=== PATIENT | female | born 1950 | race Caucasian/White ===

== ENCOUNTER 2025-03-09 13:44 | Emergency (ER) | payer OTHER, MEDICARE, SELFPAY ==
[2025-03-09] VITALS (8 sets, daily range): BP systolic 128–159; BP diastolic 59–87; PULSE 60–76; RESP 14–20; TEMP 36.4–36.7; O2SAT 97–100; BMI 31.5
--- NOTE | 2025-03-09 14:05 | RAD_ITS ---
PROCEDURE: WRIST MIN 3 VIEWS 03/09/2025 REASON FOR EXAM: FALL TECHNIQUE: Three-view right wrist. COMPARISON: None RAD/Wrist min 3 Views IMPRESSION: A comminuted impacted intra-articular fracture of the distal right radius is se en, with secondary marked positive ulnar variance. A displaced ulnar styloid fracture is also noted. Generalized osteopenia is present. Mild degenerative changes are seen throughout the fingers, moderate at the 1st interphalangeal joint. Mild degenerative changes are seen of the 1st metacarpophalangeal joint and the scaphoid trapezial trapezoid joint Reading Location: [id number]
[2025-03-09] MEDS: oxyCODONE 5 MG Tablet PO (15:05)
--- NOTE | 2025-03-09 15:24 | EX.ED.UPPERE ---
HPI History of Present Illness Chief Complaint: Upper Extremity Injury Informant: patient and family Narrative Narrative: [id number] female presents for fall while at work. Stumbled falling outstretched hand. Pain to right wrist and forearm. No head injuries. No anticoagulants. No history of fractures. Denies any allergies. Does not follow with an orthopedist. Prior similar symptoms: No PFSH PFSH Medical History Hypothyroid Hypercholesteremia Hypertension Home Medications ?Medication ?Instructions ?Recorded ?Last Taken ?Type atorvastatin 20 mg tablet 20 mg PO DAILY 03/09/25 Unknown History chlorthalidone 25 mg tablet 25 mg PO DAILY 03/09/25 Unknown History clonidine HCl 0.2 mg tablet 0.2 mg PO BID 03/09/25 Unknown History docusate sodium 100 mg capsule 100 mg PO BID #60 caps 03/09/25 Unknown Rx (Colace) gabapentin 100 mg capsule 100 mg PO TID 03/09/25 Unknown History levothyroxine 75 mcg tablet 75 mcg PO DAILY disorder of 03/09/25 Unknown History thyroid gland lisinopril 40 mg tablet 20 mg PO BID 03/09/25 Unknown History meloxicam 15 mg tablet 15 mg PO DAILY 03/09/25 Unknown History ondansetron 4 mg disintegrating 4 mg PO Q8H PRN PRN Nausea #10 tabs 03/09/25 Unknown Rx tablet oxycodone-acetaminophen 5 mg-325 1 tab PO Q6H PRN PRN Pain 3 days 03/09/25 Unknown Rx mg tablet #12 TABLETS Allergy/AdvReac Type Severity Reaction Status Date / Time No Known Allergies Allergy Verified 03/09/25 13:44 Surgical History No pertinent past surgical history Social History (Updated 03/09/25 @ 19:[address] Alexander Heaton MD) Smoking Status: Never smoker alcohol intake: never ROS ROS ED Constitutional Constitutional ED: Denies fever(s) Cardiovascular Cardiovascular: Denies chest pain Respiratory/Chest Respiratory/Chest: Denies cough Gastrointestinal Gastrointestinal: Denies diarrhea or vomiting Musculoskeletal Musculoskeletal: Reports other Details: Right wrist and forearm pain. Integumentary Denies rash or wounds Neurologic Neurologic: Denies weakness EXAM Physical Exam Const Vital Signs: 03/09/25 13:44 Temperature 97.6 F L Temperature Source Temporal Pulse Rate 60 Respiratory Rate 18 Blood Pressure 144/68 H Blood Pressure Mean 93 Pulse Ox 100 Oxygen Delivery Method Room Air Positive well nourished and well developed Constitutional Narrative: GCS 15. General Appearance ED: well developed HEENT normocephalic and atraumatic Eyes General Eye ED: Yes normal appearance of both eyes Neck full ROM Resp normal respiratory effort and normal air movement Cardio regular rate and regular rhythm GI soft to palpation Extremity full ROM Extremity Narrative: Right upper extremity: No shoulder or elbow tenderness. Tender. Patient mid forearm or radial aspect. There is deformity of the distal wrist. Swelling to the hand. Skin superficial abrasion ulnar aspect distal forearm there is no lacerations. Neuro oriented x3 Skin Skin Narrative: See above MDM MDM MDM Narrative Medical decision making narrative: Interventions / MDM: Differential diagnosis: Fall, wrist fracture, conscious sedation Diagnosis considered but do not suspect: No open fracture My EKG interpretation: N/A Imaging independently reviewed and interpreted by myself: 3 view right wrist: Displaced distal radius fracture dorsally ulnar styloid fracture. 2 view forearm right: Dorsal displacement fragment. Repeat 2 views right wrist postreduction: Minimal improvement fracture. Repeat 2 views right wrist postreduction: Minimal improvement of fracture. External documents reviewed: N/A Test considered but not ordered:N/A ED course: From nursing triage returned wrist films fracture however she does also have mid forearm pain. She tried oxycodone. Will send for forearm films. Will plan noted distal radius to reduce. Slight abrasion ulnar aspect distal forearm however no lacerations or concerns for open fraction. 1600: Forearm x-ray with distal radius fracture no mid forearm fracture. Preparations made for fingertrap reduction. 1630: Procedure note: Verbal consent. Skin was prepped dorsally to the radius: Alcohol prep the skin. 25-gauge 1.5 inch needle used to advance to the fracture, dark blood return total 8 cc 0.5% bupivacaine injected into the fracture. Patient placed in finger traps, allowed to hang at this time. 1655: Returned there seem to be improved alignment from finger traps. Nylon sleeve, Curlex dressing extra padding over the wrist. 4 inch AP plaster splint was placed. Morgan wrap to secure, patient placed in a forced flexion position. Neuro vas intact post splinting. Patient tolerated the procedure well. Post reduction films ordered. Postreduction film still had displacement posteriorly of the fragment. Discussed with the patient, she is willing to reattempt reduction. 1744: IM fentanyl 50 mics was given. Splinting was removed. Reattempt reduction forearm, patient this time felt a pop in the fracture area. Improved alignment again. Nylon sleeve was placed, Kerlix dressing, 4 inch A-P plaster splint securing in a flexion position of the wrists. Neuro vas intact post splinting. Patient tolerated procedure well. Will reorder reduction films. 1849: Films still displaced fracture. Discussed with Dr. Heaton reviewed the films, he will come and evaluate the patient for reduction himself. He request plans for sedation. Discussed with the patient who agrees. Will establish IV preprocedure set up. 1939: Written consent was obtained for conscious sedation. IV, pulse ox, monitor, capnography. Fluids at KVO. Time out at 1939. Propofol started at 1946 initial 40 mg additional 20 mg was given. Pulse ox respiratory rate capnography was stable. Reduction performed by Dr. Heaton. C arm was used. See his note. Patient will follow-up in's office on Wednesday. Prescription for oxycodone Colace and Zofran to her pharmacy. Re-evaluation: stable Disposition discussed with patient/family/significant other: Patient Case discussed with consulting clinician: Orthopedics This note was generated with [employer] dictation software. It may contain incorrect words, spelling, and punctuation that were not noted in checking the note before signing. Radiography Diagnostic Testing: Clinical Impression(s) from Imaging Studies Wrist X-Ray 03/09/25 14:05 IMPRESSION: A comminuted impacted intra-articular fracture of the distal right radius is seen, with secondary marked positive ulnar variance. A displaced ulnar styloid fracture is also noted. Generalized osteopenia is present. Mild degenerative changes are seen throughout the fingers, moderate at the 1st interphalangeal joint. Mild degenerative changes are seen of the 1st metacarpophalangeal joint and the scaphoid trapezial trapezoid joint Reading Location: [address] Discharge Plan Triage Chief Complaint: Upper Extremity Injury ED Provider: Micah Dumont Dx/Rx/DC Orders Clinical Impression: Closed fracture of right wrist, Fall, Work related injury, History of conscious sedation Instructions: ED Procedural Sedation, (Adult), ED Fracture, Wrist, General Prescriptions: New oxycodone-acetaminophen 5-325 mg tablet 1 tab PO Q6H PRN PRN (Reason: Pain) 3 Days Qty: 12 0RF docusate sodium [Colace] 100 mg capsule 100 mg PO BID Qty: 60 0RF ondansetron 4 mg tablet,disintegrating 4 mg PO Q8H PRN PRN (Reason: Nausea) Qty: 10 0RF No Action atorvastatin 20 mg tablet 20 mg PO DAILY meloxicam 15 mg tablet 15 mg PO DAILY chlorthalidone 25 mg tablet 25 mg PO DAILY levothyroxine 75 mcg tablet 75 mcg PO DAILY clonidine HCl 0.2 mg tablet 0.2 mg PO BID gabapentin 100 mg capsule 100 mg PO TID lisinopril 40 mg tablet 20 mg PO BID Primary Care Provider: Jose Lee Referrals: Jose Lee MD [Primary Care Provider] - Alexander Heaton MD [Med Staff - Active Staff] - 03/14/25 Activity Restrictions/Additional Instructions: Your fracture reduced by Dr. Heaton in the ED under conscious sedation. Take medications as prescribed. Call office on Wednesday to be seen on Wednesday. Stool softeners to prevent constipation from pain medicines. Print Language: Tamazight Disposition Disposition: Home, Self Care Discharge Date/Time: 03/09/25 21:25
--- NOTE | 2025-03-09 15:40 | RAD_ITS ---
EXAM: XR Right Forearm, 2 Views CLINICAL INDICATION: INJURY TECHNIQUE: Frontal and lateral views of the right forearm. COMPARISON: No relevant prior studies available. FINDINGS: BONES/JOINTS: Comminuted impacted fracture of the distal radius. The distal fragment or retracted and displaced posteriorly. Significant soft tissue swelling. No dislocation. SOFT TISSUES: See above. RAD/Forearm 2 Views IMPRESSION: Comminuted impacted fracture of the distal radius. The distal fragment or retr acted and displaced posteriorly. Significant soft tissue swelling. Reading Location: [id number]
[2025-03-09] MEDS: Bupivacaine Mpf 0.5% 30 ML VIAL 5 ML INFILT (16:17)
--- NOTE | 2025-03-09 17:26 | RAD_ITS ---
EXAM: XR Right Wrist, 2 Views CLINICAL INDICATION: POST REDUCTION TECHNIQUE: Frontal and lateral views of the right wrist. COMPARISON: Earlier today FINDINGS: BONES/JOINTS: Comminuted fracture of the distal radius. The distal fragment is displaced posteriorly. Cast placement. No dislocation. SOFT TISSUES: Unremarkable. No radiopaque foreign body. RAD/Wrist 2 Views IMPRESSION: Comminuted fracture of the distal radius. The distal fragment is displaced pos teriorly. Cast placement. Reading Location: [id number]
[2025-03-09] MEDS: fentaNYL 100 MCG/2 ML Ampul 50 MCG IM (17:46)
--- NOTE | 2025-03-09 18:35 | RAD_ITS ---
PROCEDURE: WRIST 2 VIEWS 03/09/2025 REASON FOR EXAM: REDUCTION TECHNIQUE: 2 view(s) of the right wrist COMPARISON: Right wrist radiographs on 03/09/2020 FINDINGS: See below. RAD/Wrist 2 Views IMPRESSION: Overlying cast limits detailed bone and soft tissue evaluation. There is a frac ture through the distal radial metaphysis with 8 mm of dorsal translation of the distal fragment, not significantly changed. Reading Location: [facility]
--- NOTE | 2025-03-09 19:15 | RAD_ITS ---
EXAM: XR Right Wrist Complete, 3 or More Views CLINICAL INDICATION: POST REDUCTION WITH MINI C-ARM TECHNIQUE: Frontal, lateral and oblique views of the right wrist. COMPARISON: No relevant prior studies available. FINDINGS: BONES/JOINTS: Fluoroscopic guidance was used intraoperatively. Status post successful reduction of the comminuted fracture of the distal radius and ulna. Total fluoroscopy time was 1 6 seconds. Total 12 images were obtained. Total radiation dose 2.29 mGy. No dislocation. SOFT TISSUES: Unremarkable. No radiopaque foreign body. RAD/Wrist min 3 Views IMPRESSION: Fluoroscopic guided reduction as above. Reading Location: [id number]
[2025-03-09] MEDS: 0.9% Normal Saline (1000mL) 1,000 ML 15 ML IV (19:46)
[2025-03-09] MEDS: Propofol 200 MG/20 ML Vial IV BOLUS (19:47)
--- NOTE | 2025-03-09 19:55 | ED.RN ---
dr jordan manipulating still at the bedside the pt's right arm.
--- NOTE | 2025-03-09 19:57 | CON.PCM.OR_ITS ---
HPI Consult Data Date of Consult: 03/09/25 HPI Narrative HPI Narrative: ESPERANZA BLANDON, is a 75 F who presents today with right wrist pain. Patient was walking out of work and tripped falling onto her right wrist. Patient is right- hand dominant. She does report some numbness and tingling in the fingers however she had a local hematoma block and notes that prior to that she had minimal numbness and tingling in the fingers. Patient reports her pain is at 10 out of 10 after the injury currently a 9 out of 10 little bit better with partial reduction and pain medications. 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 Reports hypertension and thyroid disease. Noted swelling and deformity at the time of the injury. Currently wearing a splint. [facility] Medical History Hypothyroid Hypercholesteremia Hypertension Home Medications ?Medication ?Instructions ?Recorded ?Last Taken ?Type atorvastatin 20 mg tablet 20 mg PO DAILY 03/09/25 Unkn own History chlorthalidone 25 mg tablet 25 mg PO DAILY 03/09/25 Un known History clonidine HCl 0.2 mg tablet 0.2 mg PO BID 03/09/25 Unk nown History gabapentin 100 mg capsule 100 mg PO TID 03/09/25 Unkno wn History levothyroxine 75 mcg tablet 75 mcg PO DAILY disorder o f 03/09/25 Unknown History thyroid gland lisinopril 40 mg tablet 20 mg PO BID 03/09/25 Unknow n History meloxicam 15 mg tablet 15 mg PO DAILY 03/09/25 Unkn own History Allergy/AdvReac Type Severity Reaction Status Date / Time No Known Allergies Allergy Verified 03/09/25 13:44 Surgical History No pertinent past surgical history Social History (Updated 03/09/25 @ 19:[address] Alexander Heaton MD) Smoking Status: Never smoker alcohol intake: never ROS ROS Narrative 14 point review of systems outside was mentioned in the HPI is negative. Vital Signs Vital Signs Vital Signs: 03/09/25 13:44 03/09/25 17:44 03/09/25 19:37 Temperature 97.6 F L 98.0 F Temperature Source Temporal Pulse Rate 60 70 75 Pulse Rate [1 (Initial Baseline)] Pulse Rate [2] Respiratory Rate 18 16 19 H Respiratory Rate [1 (Initial Baseline)] Respiratory Rate [2] Blood Pressure 144/68 H 159/59 H Blood Pressure [1 (Initial Baseline)]
--- NOTE | 2025-03-09 19:57 | CONS.ORTHO ---
HPI Consult Data Date of Consult: 03/09/25 HPI Narrative HPI Narrative: ESPERANZA BLANDON, is a 75 F who presents today with right wrist pain. Patient was walking out of work and tripped falling onto her right wrist. Patient is right-hand dominant. She does report some numbness and tingling in the fingers however she had a local hematoma block and notes that prior to that she had minimal numbness and tingling in the fingers. Patient reports her pain is at 10 out of 10 after the injury currently a 9 out of 10 little bit better with partial reduction and pain medications. 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 Reports hypertension and thyroid disease. Noted swelling and deformity at the time of the injury. Currently wearing a splint. [facility] Medical History Hypothyroid Hypercholesteremia Hypertension Home Medications ?Medication ?Instructions ?Recorded ?Last Taken ?Type atorvastatin 20 mg tablet 20 mg PO DAILY 03/09/25 Unknown History chlorthalidone 25 mg tablet 25 mg PO DAILY 03/09/25 Unknown History clonidine HCl 0.2 mg tablet 0.2 mg PO BID 03/09/25 Unknown History gabapentin 100 mg capsule 100 mg PO TID 03/09/25 Unknown History levothyroxine 75 mcg tablet 75 mcg PO DAILY disorder of 03/09/25 Unknown History thyroid gland lisinopril 40 mg tablet 20 mg PO BID 03/09/25 Unknown History meloxicam 15 mg tablet 15 mg PO DAILY 03/09/25 Unknown History Allergy/AdvReac Type Severity Reaction Status Date / Time No Known Allergies Allergy Verified 03/09/25 13:44 Surgical History No pertinent past surgical history Social History (Updated 03/09/25 @ 19:[address] Alexander Heaton MD) Smoking Status: Never smoker alcohol intake: never ROS ROS Narrative 14 point review of systems outside was mentioned in the HPI is negative. Vital Signs Vital Signs Vital Signs: 03/09/25 13:44 03/09/25 17:44 03/09/25 19:37 Temperature 97.6 F L 98.0 F Temperature Source Temporal Pulse Rate 60 70 75 Pulse Rate [1 (Initial Baseline)] Pulse Rate [2] Respiratory Rate 18 16 19 H Respiratory Rate [1 (Initial Baseline)] Respiratory Rate [2] Blood Pressure 144/68 H 159/59 H Blood Pressure [1 (Initial Baseline)] Blood Pressure [2] Blood Pressure Mean 93 Baseline BP 159/59 Pulse Ox 100 100 Oxygen Delivery Method Room Air Room Air Oxygen Delivery Method [1 (Initial Baseline)] Oxygen Delivery Method [2] Oxygen Flow Rate (L/min) [1 (Initial Baseline)] Oxygen Flow Rate (L/min) [2] Fraction of Inspired Oxygen (FIO2) [1 (Initial Baseline)] EtCo2 - Document during CPR and with ROSC EtCo2 - Document during CPR and with ROSC [1 (Initial Baseline)] EtCo2 - Document during CPR and with ROSC [2] 03/09/25 19:47 03/09/25 19:48 Temperature Temperature Source Pulse Rate Pulse Rate [1 (Initial Baseline)] 76 Pulse Rate [2] 64 Respiratory Rate Respiratory Rate [1 (Initial Baseline)] 19 H Respiratory Rate [2] 20 H Blood Pressure Blood Pressure [1 (Initial Baseline)] 159/61 H Blood Pressure [2] 159/62 H Blood Pressure Mean Baseline BP Pulse Ox Oxygen Delivery Method Oxygen Delivery Method [1 (Initial Baseline)] Nasal Cannula Oxygen Delivery Method [2] Nasal Cannula Oxygen Flow Rate (L/min) [1 (Initial Baseline)] 2 Oxygen Flow Rate (L/min) [2] 2 Fraction of Inspired Oxygen (FIO2) [1 (Initial Baseline)] 100 EtCo2 - Document during CPR and with ROSC 39 EtCo2 - Document during CPR and with ROSC [1 (Initial Baseline)] 39 EtCo2 - Document during CPR and with ROSC [2] 37 Weight Weight: 178 lb 1.6 oz Body Mass Index (BMI) 31.5 Physical Exam Const alert and oriented x3 General Appearance: cooperative HEENT normocephalic and head/scalp atraumatic Eyes PERRL Neck no JVD Resp normal respiratory effort Cardio Cardio Narrative: Regular pulse rate GI non-distended Extremity Extremity Narrative: Right upper extremity: Swollen, skin is intact, gross deformity. Positive thumbs up, moves all digits. Digits are warm pink with brisk cap refill. Palpable pulses. Mild paresthesias likely from previous hematoma block. Skin Skin Narrative: After splint was removed skin was intact. Neuro CN's II-XII intact bilaterally and moves all extremities Psych affect normal Medical Records Data Attestation: I reviewed the patient's medical records Imaging Radiology Impression Wrist X-Ray 03/09/25 14:05 IMPRESSION: A comminuted impacted intra-articular fracture of the distal right radius is seen, with secondary marked positive ulnar variance. A displaced ulnar styloid fracture is also noted. Generalized osteopenia is present. Mild degenerative changes are seen throughout the fingers, moderate at the 1st interphalangeal joint. Mild degenerative changes are seen of the 1st metacarpophalangeal joint and the scaphoid trapezial trapezoid joint Reading Location: [id number] Forearm X-Ray 03/09/25 15:40 IMPRESSION: Comminuted impacted fracture of the distal radius. The distal fragment or retracted and displaced posteriorly. Significant soft tissue swelling. Reading Location: [facility] Wrist X-Ray 03/09/25 17:26 IMPRESSION: Comminuted fracture of the distal radius. The distal fragment is displaced posteriorly. Cast placement. Reading Location: [facility] Personally reviewed and independently reviewed each of the above images. Patient continues have significantly displaced distal radius fracture. Difficult to tell the coronal morphology based on the almost 90 degree angulation of the articular fragment. Postreduction films: Fluoroscopy was done intraoperatively, we were able to more significantly reduce the fracture in the coronal and sagittal planes. During the manipulation fluoroscopy did reveal a T-type intra-articular fracture. Assessment & Plan Assessment/Plan (1) Intra-articular fracture of distal end of right radius with volar angulation: PLAN: Natural history of the disease process and treatment options were discussed the patient. Patient has undergone 2 unsuccessful reductions. Initially with hematoma block then with hematoma block and fentanyl. However, based on prereduction images it does appear that we are able to reduce the fracture adequately likely be a nonoperative fracture. Based on this after examining the patient interviewing her I did recommend we proceed with another reduction of the fracture under conscious sedation. Patient was agreeable to this. She was consented for conscious sedation for the emergency room physician who administered sedation. After reducing the fracture we did obtain of adequate reduction based on intraoperative fluoroscopy today. Procedure is noted below. After patient was awake and alert patient was able to show intact motor exam thumbs up, okay sign and crossing fingers on the right hand. Plan will be for the patient be discharged with pain control per emergency room physician and follow-up in the office next Wednesday for repeat x-rays and discussion on possible surgical intervention based on stability of reduction fracture pattern Procedure: Closed reduction intra-articular distal radius fracture on the right. After administering consultation to the emergency department patient was well relaxed. The wrist was taken through range of motion and expected. The reduction maneuver recreating the fracture pattern I then reduced and the fracture was performed. Laparoscopy was used in 3 separate attempts were used to each time further reduce the fracture. Once we had 100% reduction on the sagittal plane the coronal plane became more evident noting that the patient had a T-type fracture. Once we are happy with the fracture reduction fracture was held by the emergency room physician as I prepared the splint. Once splint was repaired it was placed in AP fashion and 3 point mold was performed. At the completion of the 3 point mold final x-rays with the fluoroscopic machine were taken. Fracture remained adequately reduced based on these films.
[2025-03-09] MEDS: Ondansetron 4 MG/2 ML Vial IV (20:09)
== END 2025-03-09 21:25 | disposition home or self-care (01) ==
PROVIDERS: Emergency Provider Emergency Medicine; PCP Family Medicine; Visit Provider Emergency Medicine
DX: S52.571A Other intraarticular fracture of lower end of right radius, initial encounter for closed fracture (principal); S52.611A Displaced fracture of right ulna styloid process, initial encounter for closed fracture; W01.0XXA Fall on same level from slipping, tripping and stumbling without subsequent striking against object, initial encounter; Y93.01 Activity, walking, marching and hiking; Y99.0 Civilian activity done for income or pay
CPT/HCPCS: 25605; 73090; 73100; 73110; 76000; 96374; 99285; A4216; J2405

== ENCOUNTER → 2025-03-14 | Outpatient (CLI) | payer MEDICARE, SELFPAY ==
--- NOTE | 2025-03-14 12:34 | CT_ITS ---
PROCEDURE: EXTREMITY UPPER WITHOUT CONTRA 03/14/2025 REASON FOR EXAM: RADIUS FX TECHNIQUE: Axial CT images of the right wrist obtained without intravenous contrast. Coronal and Sagittal reconstruction series were provided. One or more dose reduction techniques were used (e.g., Automated exposure control, adjustment of the mA and/or kV according to patient size, use of iterative reconstruction technique RADIATION DOSE SUMMARY: DLP: 215.96 mGycm COMPARISON: March 09, 2025 x-ray FINDINGS: There is overlying splint material. There is a comminuted distal radius fracture with components extending to the articular surface and to the distal radioulnar joint, with impaction. There is no significant angulation. There is a displaced fracture of the ulnar styloid, with 0.3 cm offset. The proximal portion of the distal radioulnar joint is aligned. There is widening of the scapholunate articulation to 0.55 cm. Soft tissues are grossly unremarkable. There is no discrete hematoma identified. No radiopaque foreign body is seen. CT/Extremity Upper without Contra IMPRESSION: There is a comminuted distal radius fracture with components extending to the a rticular surface and to the distal radioulnar joint, with impaction. There is a displaced fracture of the ulnar styloid, with 0.3 cm offset. There is widening of the scapholunate articulation to 0.55 cm. Reading Location: [facility]
== END | disposition home or self-care (01) ==
LOC: CT 12:31
PROVIDERS: PCP Family Medicine; Referring Provider Specialist; Visit Provider Specialist
DX: S52.571A Other intraarticular fracture of lower end of right radius, initial encounter for closed fracture (principal); X58.XXXA Exposure to other specified factors, initial encounter
CPT/HCPCS: 73200